=== PATIENT | female | born 1955 | race Caucasian/White ===

== ENCOUNTER → 2016-11-30 | Outpatient (CLI) | payer BC ==
[~2016-11-30] MED LIST: ADVIL200 MG PO; ATIVAN 1MG T1 MG/TAB PO; COMPAZINE 110 MG/TAB PO; DILAUDID 2MG/2 MG/M1 IV; DULCOLAX S10 MG/SUPP RC; EMLA CREAM TOP; GLUCOPHAGE500 MG/TAB PO; IBRANCE125 MG PO; LIPITOR 10MG10 MG PO; LOVENOX 4040 MG/0.4 SQ; PROTONIX I40 MG/VIAL IV; ROXANOL 20MG20 MG/ML PO; SYNTHROID0.088 MG/T PO; TRANSDERM-0.5 MG/21 TD; TYLENOL SU650 MG/SUP RC; ZOFRAN INJ4 MG/2 ML IV; ZOFRAN8 MG PO; ZOLOFT 100MG100 MG PO
== END ==
LOC: ZCOL.LAB 11:07
DX: Z01.89 Encounter for other specified special examinations (principal)

== ENCOUNTER → 2016-12-13 | Outpatient (CLI) | payer BC | LOC: COL.RAD 09:14 | DX: R00.0 Tachycardia, unspecified (principal); Z95.828 Presence of other vascular implants and grafts ==

== ENCOUNTER → 2016-12-21 | Outpatient (CLI) | payer BC | LOC: COL.RAD 13:52 | DX: C50.411 Malignant neoplasm of upper-outer quadrant of right female breast (principal); C79.51 Secondary malignant neoplasm of bone; K80.10 Calculus of gallbladder with chronic cholecystitis without obstruction; R06.00 Dyspnea, unspecified | CPT/HCPCS: Q9967 ==

== ENCOUNTER 2016-12-28 13:58 | Inpatient (IN) | payer BC ==
[~2016-12-28] VITALS: Ht 172.7 cm; Wt 86.9 kg
--- NOTE | 2016-12-28 14:00 | NUR ---
PATIENT ADMITED INTO ROOM 346 FROM OFFICE WITH N/V AND WILL HAVE AN EGD IN THE AM. NPO AFTER MIDNIGHT. SEE ORDERS. PATIENT HAS BREAST CA AND RECEIVING CHEMO. ACCESSED RIGHT CHEST PORT WITH 1 INCH HUBBER NEEDLE WITH GOOD BLOOD RETURN. IV FLUIDS BOLUS GIVEN VIA PUMP PER ORDERS. HEALTH HISTORY AND MEDS OBTAINED. HEAD TO TOE ASSESSMENT COMPLETE. FAMILY AT BEDSIDE. ORIENTED TO ROOM. CALL LIGHT IN REACH.
[2016-12-28 14:35] VITALS: BP 126/66; PULSE 79; TEMP 97.5
[2016-12-28 14:42] LABS: HEMATOCRIT 38.8 % (37.0-47.0); HEMOGLOBIN 12.9 g/dl (12.5-16.0); MEAN CELL VOLUME 102 fl (80.0-100.0); MEAN CORPUSCULAR HEMOGLOBIN 34 pg (27.0-31.0); MEAN CORPUSCULAR HGB CONC 33 g/dl (33.0-37.0); MEAN PLATELET VOLUME 10.5 fl (7.4-10.4); PLATELET COUNT 135 K/mm3 (130-400)
[2016-12-28 15:01] LABS: ALBUMIN 3.6 gm/dL (3.5-5.0); BILIRUBIN,TOTAL 2.1 mg/dL (0.0-1.0); C-REACTIVE PROTEIN 3.1 mg/dL (0.0-0.9); CALCIUM 9.7 mg/dL (8.4-10.2); CREATININE, serum 1.05 mg/dL (0.52-1.25); POTASSIUM 4.2 mmol/L (3.4-5.0); TOTAL PROTEIN 8.5 gm/dL (6.4-8.2)
[2016-12-28] MEDS ORDERED: IBRANCE125 MG PO (16:25)
[2016-12-28] MEDS ORDERED: SYNTHROID0.088 MG/T PO (16:27)
[2016-12-28] MEDS ORDERED: COMPAZINE 110 MG/TAB PO (16:27)
[2016-12-28] MEDS ORDERED: ZOLOFT 100MG100 MG PO (16:28)
[2016-12-28] MEDS ORDERED: GLUCOPHAGE500 MG/TAB PO (16:28)
[2016-12-28] MEDS ORDERED: ZOFRAN8 MG PO (16:28)
[2016-12-28] MEDS ORDERED: EMLA CREAM TOP (16:28)
[2016-12-28] MEDS ORDERED: ADVIL200 MG PO (16:29)
[2016-12-28] MEDS ORDERED: LIPITOR 10MG10 MG PO (16:29)
[2016-12-28 18:13] VITALS: BP 102/45; PULSE 73; TEMP 98
--- NOTE | 2016-12-28 20:34 | NUR ---
Pt lying in bed resting. Arousable to voice commands, pt denies nausea or pain at this time. IV protonix given. Pt has some appetite, jello and juice given, tolerated well. IVF running to port on right upper chest. Pt NPO for EGD in the AM. Pt denies needs. Call light within reach. Will continue to monitor.
[2016-12-28 22:01] VITALS: BP 108/55; PULSE 78; TEMP 98.3
[2016-12-29] VITALS (13 sets, daily range): BP systolic 110–126; BP diastolic 50–66; PULSE 64–89; TEMP 97.6–98.7
--- NOTE | 2016-12-29 06:45 | NUR ---
PT slept well during the night, needed pain and nausea medicine early this am. IVF running to port, right upper chest. VSS. Consent signed by son this AM. Pt to EGD this am. Shift report given to BRO Kruger.
--- NOTE | 2016-12-29 07:00 | NUR ---
Bedside shift report received from Irlanda Shelton. Pt nauseated at this time, Dr. Philip on floor, received orders for Phenergan. Will provide.
--- NOTE | 2016-12-29 08:04 | NUR ---
Son here to sign consent. Preop checklist completed. Pt nauseated and resting with eyes closed at this time. IVF to [facility] portacath. Pt denies pain. Family at bedside for EGD, pt left floor at this time with Endo staff for procedure.
--- NOTE | 2016-12-29 08:30 | NUR ---
Pt returned to floor at this time. Sleepy but arousable, VSS. Family at bedside but going home. Will continue to monitor.
--- NOTE | 2016-12-29 10:23 | NUR ---
Daughter called, will be sending DPOA and advanced directives via fax shortly
--- NOTE | 2016-12-29 10:31 | NUR ---
Called family to update regarding MRI information, will continue to monitor.
[2016-12-29 11:50] LABS: MEAN CELL VOLUME 106 fl (80.0-100.0); MEAN CORPUSCULAR HGB CONC 32 g/dl (33.0-37.0); MEAN PLATELET VOLUME 10.9 fl (7.4-10.4); PLATELET COUNT 123 K/mm3 (130-400); RED BLOOD COUNT 3.14 M/mm3 (4.10-5.30); REDCELL DISTRIBUTION WIDTH-CV 18.5 % (11.5-14.5)
[2016-12-29 11:56] LABS: HEMATOCRIT 33.3 % (37.0-47.0); HEMOGLOBIN 10.8 g/dl (12.5-16.0); MEAN CORPUSCULAR HEMOGLOBIN 34 pg (27.0-31.0)
[2016-12-29 11:57] LABS: BILIRUBIN,TOTAL 2.1 mg/dL (0.0-1.0); CALCIUM 8.3 mg/dL (8.4-10.2); CREATININE, serum 0.85 mg/dL (0.52-1.25); TOTAL PROTEIN 7.2 gm/dL (6.4-8.2)
--- NOTE | 2016-12-29 15:30 | NUR ---
Met with pt's son and daughter while she was sleeping. They are very aware that an MRI has been ordered along with blood culture and antibiotic. While they are hopeful for a manageable situation, they are also well aware that her situation has been worsening over the last few months with appetite, mental status, strength, and general well-being. We did talk about resources in community that are available, dependent on what goal of care is. Family is hopeful to return their mother to [facility] which is where she is from it her "last days are getting close." We should have much more information available at the beginning of next week. They also report that Denilson with [employer] has called them but left messages and they have left messages but have not spoken to her. Advised Sofía Bhat LMSW of these conversations also.
--- NOTE | 2016-12-29 19:00 | NUR ---
Pt has recieved PRN nausea medications over shift as needed. Rested well at times. Ate a jello and had a few sips of juice for supper. Family at bedside. Bedside shift report given to Irlanda Pappas who will resume care.
[2016-12-30 03:18] VITALS: BP 115/55; PULSE 72; TEMP 98.6
[2016-12-30 05:03] VITALS: BP 133/76; PULSE 70; TEMP 98.3
--- NOTE | 2016-12-30 05:18 | NUR ---
PT HAS DENIED ANY NAUSEA TONIGHT. VERY WEAK AMBULATION. KNEES HURT EATLIER BUT DENIES NEED FOR PAIN MED. HAS RESTED MOST OF THE NIGHT. TOOK PART OF A SPRITE AND A FULL JELLO. VERY FATIGUED.
[2016-12-30 09:30] VITALS: BP 128/61; PULSE 75; TEMP 98.2
--- NOTE | 2016-12-30 10:55 | NUR ---
PT RESTING IN BED DURING MORNING ROUNDS WITH SON AT BEDSIDE. PT STATES SHE HAS PASSED GAS AND DID HAVE BM TODAY. PT DENIES NAUSEA TODAY AND IS REQUESTING MORE DIETARY ITEMS. SON STATES PT IS DOING MUCH BETTER TODAY THAN YESTERDAY REGARDING NAUSEA.
[2016-12-30 13:48] VITALS: BP 130/65; PULSE 74; TEMP 98.3
[2016-12-30 17:34] VITALS: BP 124/71; PULSE 74; TEMP 97.6
[2016-12-30 22:23] VITALS: BP 125/64; PULSE 81; TEMP 98.2
--- NOTE | 2016-12-31 03:39 | NUR ---
The pt was bedresting with her son at her side as the shift began. Her IV via portacath is patent for fluids and meds. she had a broth for supper and is eating her second jello at this time. a gelatiene was given to the pt to sample and teaching about its protien content was discussed. Her son is hopeful that it could help give her strength. The pt verbalized of her diagnosis in [facility] and of her move to [place] 2 months ago to be near her children and grandchildren. She appears to sleep in long naps between trips to the to void.
--- NOTE | 2016-12-31 03:45 | NUR ---
Today is the pt's Birthday!
[2016-12-31 06:29] VITALS: BP 129/68; PULSE 82; TEMP 97.5
[2016-12-31 07:07] LABS: BASO # 0.1 (0.0-0.2); BASO % 0.7 % (0.0-2.0); EOS # 0.1 (0.0-0.7); EOS % 0.8 % (0-4.0); GRAN # 10.8 (1.4-6.5); GRAN % 70.7 % (42.2-75.2); LYMPH # 2.8 (1.2-3.4); LYMPH % 18.1 % (20.0-51.0); MEAN CELL VOLUME 104 fl (80.0-100.0); MEAN CORPUSCULAR HGB CONC 33 g/dl (33.0-37.0); MEAN PLATELET VOLUME 11.5 fl (7.4-10.4); MONO # 1.4 (0.1-0.6); PLATELET COUNT 97 K/mm3 (130-400); RED BLOOD COUNT 3.12 M/mm3 (4.10-5.30); REDCELL DISTRIBUTION WIDTH-CV 18.7 % (11.5-14.5)
[2016-12-31 07:08] LABS: HEMATOCRIT 32.4 % (37.0-47.0); HEMOGLOBIN 10.7 g/dl (12.5-16.0); MEAN CORPUSCULAR HEMOGLOBIN 34 pg (27.0-31.0)
[2016-12-31 07:12] LABS: ALBUMIN 2.8 gm/dL (3.5-5.0); BILIRUBIN,TOTAL 2.9 mg/dL (0.0-1.0); CALCIUM 8.1 mg/dL (8.4-10.2); CREATININE, serum 0.98 mg/dL (0.52-1.25); POTASSIUM 3.4 mmol/L (3.4-5.0); TOTAL PROTEIN 6.9 gm/dL (6.4-8.2)
[2016-12-31 10:10] VITALS: BP 127/61; PULSE 73; TEMP 97.7
--- NOTE | 2016-12-31 11:15 | NUR ---
PT AWAKE AND RESTING IN BED DURING MORNING ROUNDS. SHE STATES SHE HAD A PLEASANT NIGHT AND WAS ABLE TO SLEEP AND TOLERATE PO INTAKE. PRINT TRAFFIC MANAGER NURSE ADVANCED PATIENT TO SOFT AND PT/NURSE AGREE TO ATTEMPT A REGULAR DIET FOR LUNCH. PT ORDERED OATMEAL FOR BREAKFAST, ATE 50%, TOLERATED WELL. PT OOB TO COMMODE WITH 1 ASSIST AND GAIT BELT. GAIT IS UNSTEADY AND PT IS HIGH FALL RISK; PRECAUTIONS IN PLACE.
[2016-12-31 13:21] VITALS: BP 133/70; PULSE 81; TEMP 97.5
--- NOTE | 2016-12-31 20:00 | NUR ---
patient dong well. Ambulated to the bathroom with a gait belt, no walker. steady gait. no pain. portacath to right chest CDI. No abdominal pain. Patient ate all of dinner. Will continue to monitor.
[2016-12-31 22:19] VITALS: BP 136/69; PULSE 74; TEMP 97.7
--- NOTE | 2017-01-01 01:58 | NUR ---
Patient resting in bed. She was uncomfortable and wanted to get off her bottom so i turned her on her left side. Now sleeping.
[2017-01-01 02:32] VITALS: BP 127/65; PULSE 86; TEMP 97.2
[2017-01-01 05:59] VITALS: BP 133/76; PULSE 71; TEMP 98.6
--- NOTE | 2017-01-01 06:28 | NUR ---
Patient doing well. Already ambulated to bathroom this morning. About to give bedside shift report to oncoming nurse.
--- NOTE | 2017-01-01 09:15 | NUR ---
PATIENT UP TO THE BATHROOM & SHE IN NOW SITTING UP IN CHAIR. SHE IS UNSTEADY ON HER FEET, BUT SHE REPORTS FEELING SO MUCH BETTER AND STRONGER TODAY. PORT WITH IVF. BREAKFAST ORDERED. SHE DENIES NAUSEA. SCDS BLE. CRISTINA BULK ROUNDING. PATIENT IN POSITIVE SPIRIRTS. WILL CONTINUE TO [facility].
--- NOTE | 2017-01-01 09:34 | NUR ---
Met with pt herself today, who is sitting up in chair and conversing easily today. She looks so much better than on sunday. Her son and daughter in law are not present at this time. She is still planning to return to [facility] when her son gets out of the in 1 month but we are not anticipating a more emergent move before then. Will continue to follow pt while here but not anticipating further intervention.
[2017-01-01 10:56] VITALS: BP 145/74; PULSE 73; TEMP 97.6
--- NOTE | 2017-01-01 11:37 | NUR ---
First visit from the equine manager. No spiritual needs right now.
--- NOTE | 2017-01-01 12:08 | NUR ---
SPOKE WITH ABOUT PATIENT THIS AM. ORDERS FOR PT AND OT OBTAINED. SPOKE WITH PATIENT SON YOVANNY-HE WAS CONCERNED ABOUT DC. SOCIAL WORK INVOLVED-POTENTIAL FOR IPR. PATIENT ATE A GOOD AMOUNT OF HER BREAKFAST, NOT READY FOR LUNCH YET. CONTINUES TO DENY PAIN. DOING WELL, SITTING UP IN CHAIR. WILL CONTINUE TO [facility].
[2017-01-01 14:11] VITALS: BP 136/70; PULSE 73; TEMP 98.2
--- NOTE | 2017-01-01 14:48 | NUR ---
general i farmworker met with patient to discuss rehab options. Patient was evaluated by physical therapy and the recommendation was for acute rehab. Worker provided rehab options and patient chose [facility] and signed choice form. Worker gave a referral. Will await occupational therapy evaluation and insurance approval. Per patient' request, worker contacted son, Albert, and advised of the above information.
--- NOTE | 2017-01-01 15:57 | NUR ---
IPR SCREEN IN PROCESS. ASSISTED PATIENT TO EAT MASHED POTATOES & MEATLOAF FOR LUNCH. SHE HAS WORKED WITH THERAPY THIS AFTERNOON. SHE OVER REPORTS FEELING WELL. WILL CONTINUE TO MONITOR.
[2017-01-01 17:33] VITALS: BP 118/64; PULSE 84; TEMP 98.4
--- NOTE | 2017-01-01 19:20 | NUR ---
PATIENT SITTING UP IN CHAIR. SHE HAD A GREAT DAY. SHE DID GET NAUSEA AT THE SIGHT OF HER DINNER-CRACKERS & SPRITE PROVIDED. PORT A CATH TO INT PER ORDERS. PATIENT HAS BEEN MORE ACTIVE TODAY. MORE STEADY ON HER FEET WITH WALKER. CARMINA REPORT TO BRO HIDALGO
--- NOTE | 2017-01-01 20:03 | NUR ---
Patient complained of nausea. gave her crackers now shes feeling better. Pt is alert and oriented just slow to respond and weak and tired. Pt is falling asleep in the chair and answers when i ask questions. Will continue to monitor.
[2017-01-01 22:01] VITALS: BP 125/55; PULSE 90; TEMP 97.6
[2017-01-02 02:06] VITALS: BP 134/73; PULSE 88; TEMP 97.7
--- NOTE | 2017-01-02 02:28 | NUR ---
Patient has been very weak and tired tonight. She is sleeping in the recliner currently. She answers when we ask her something but she hasn't gone out of her way to call for anything. The call light is on her lap and i instructed her to press it but she just keeps sleeping unless we come in and then she's either sleeping while were in there or just sitting and stairing. Will continue to monitor.
--- NOTE | 2017-01-02 04:03 | NUR ---
PATIENT VERY WEAK, CAN'T LIFT UP ARMS OR FINGERS, SHE CAN KEEP THEM UP AFTER I LIFT HER ARMS UP. I HAD PATIENT SQUEEZE MY FINGERS, IT WAS EQUAL BUT VERY WEAK GRASP. PATIENT DID NOT WANT TO GET UP TO USE THE RESTROOM OR GET INTO BED. WILL CONTINUE TO MONITOR THROUGH THE REST OF THE NIGHT.
[2017-01-02 05:46] VITALS: BP 140/73; PULSE 77; TEMP 96.6
--- NOTE | 2017-01-02 06:21 | NUR ---
GRETCHEN BLOOD FROM PORT THIS MORNING. PATIENT SLEEPING, NO PAIN, STILL EXTREMELY WEAK. STILL IN THE CHAIR. ABOUT TO GIVE SHIFT REPORT TO ONCOMING SHIFT.
[2017-01-02 06:29] LABS: BASO # 0.1 (0.0-0.2); BASO % 0.6 % (0.0-2.0); EOS # 0.1 (0.0-0.7); EOS % 0.6 % (0-4.0); GRAN # 11.6 (1.4-6.5); GRAN % 73.3 % (42.2-75.2); LYMPH % 19.1 % (20.0-51.0); MEAN CELL VOLUME 103 fl (80.0-100.0); MEAN CORPUSCULAR HGB CONC 33 g/dl (33.0-37.0); MEAN PLATELET VOLUME 10.5 fl (7.4-10.4); MONO # 0.9 (0.1-0.6); MONO % 5.8 % (1.7-9.3); PLATELET COUNT 81 K/mm3 (130-400); RED BLOOD COUNT 3.15 M/mm3 (4.10-5.30)
[2017-01-02 06:31] LABS: HEMATOCRIT 32.4 % (37.0-47.0); HEMOGLOBIN 10.8 g/dl (12.5-16.0); MEAN CORPUSCULAR HEMOGLOBIN 34 pg (27.0-31.0)
--- NOTE | 2017-01-02 08:20 | NUR ---
PATIENT IN CHAIR. STATES SHE FEELS VERY WEAK. ASSISTED X2 TO AMBULATE TO THE BATHROOM. STRUGGLED USING THE WALKER TO GET TO AND FROM THE BATHROOM. ONCOLOGIST AT BEDSIDE AND PATIENT GIVEN NEWS THAT HER CANCER HAS SPREAD. SHE SAID THAT WASN'T THE NEWS SHE WANTED TO HEAR. PATIENT ASSISTED TO EAT BREAKFAST. SHE IS EXTREMELY LETHARGIC AND WEAK. STATES SHE IS IN NO PAIN. CALL LIGHT IN REACH. CHAIR ALARM ON. NO OTHER REQUESTS AT THIS TIME.
[2017-01-02 09:23] VITALS: BP 128/68; PULSE 84; TEMP 97.9
--- NOTE | 2017-01-02 12:00 | NUR ---
We await insurance approval for an acute inpatient rehab placement.
--- NOTE | 2017-01-02 12:05 | NUR ---
Pt recieved news this morning from Dr Aquino that her cancer has now spread to her stomach as demonstrated by the biopsies taken last week. She did not sleep well last night and now is feeling very overwhelmed. I spoke with her Son Albert as well as the patient about latest developments and how this might impact our working goals. At this time Albert is wanting to help his mother get stronger to be able to make the air flight home to [place], hopefully in the next few weeks. The plan is not to pursue further chemotherapy or radiation therapy per son Albert but rather to focus on comfort. Ximena, director of [facility] also spoke with Albert today as we move forward with this plan. Sofía Bhat [facility] has been advised of plan as well.
--- NOTE | 2017-01-02 13:06 | NUR ---
PATIENT ASSISTED X2 TO BATHROOM WITH GAIT BELT AND WALKER. VERY WEAK AND HAD TROUBLE UNDERSTANDING WHAT WE WANTED HER TO DO. REQUESTED TO LAY IN BED. SON AT BEDSIDE. TAKEN A WARM BLANKET. CALL LIGHT IN REACH. WATER OFFERED AND PATIENT TOOK SMALL SIP. NO FURTHER REQUESTS AT THIS TIME.
[2017-01-02 14:16] VITALS: BP 128/71; PULSE 76; TEMP 97.7
--- NOTE | 2017-01-02 18:22 | NUR ---
PATIENT ASSISTED TO BEDSIDE COMMODE. VERY WEAK AND REQUIRED A HEAVY 2 ASSIST. PATIENT CLEANED UP AND NEW GOWN PLACED. ASSITED TO WHEEL CHAIR AND PATIENT TRANSFERED TO [facility].
--- NOTE | 2017-01-02 18:47 | NUR ---
REPORT WAS GIVEN TO PRISCA CRABTREE. ALL QUESTIONS ANSWERED. PATIENT HAD BEEN NAUSEATED. ZOFRAN GIVEN PRN VIA PORT. MILKSHAKE ORDERED. PATIENT SLEPT WELL THIS AFTERNOON. DISCHARGE ORDERS FROM . ACCEPTED TO IPR.
[2017-01-02] MEDS ORDERED: ZOFRAN INJ4 MG/2 ML IV (20:24)
[2017-01-02] MEDS ORDERED: LOVENOX 4040 MG/0.4 SQ (20:25)
[2017-01-02] MEDS ORDERED: PROTONIX I40 MG/VIAL IV (20:25)
[2017-01-02] MEDS ORDERED: DILAUDID 2MG/2 MG/M1 IV (20:26)
--- NOTE | 2017-01-03 08:30 | NUR ---
On 01/02/17, insurance approved transfer to [facility] and patient was transferred to acute rehab.
== END 2017-01-02 18:00 | DRG 375 ==
LOC: SDCO 13:58 → SURG 14:05 → SDCO 14:06 → SURG 01-02 18:00
PROVIDERS: Surgery; ADMIT Surgery
PROC: 0DB68ZX Excision of Stomach, Via Natural or Artificial Opening Endoscopic, Diagnostic (ICD-10-PCS; principal; 2016-12-29 08:00)
DX: C78.89 Secondary malignant neoplasm of other digestive organs (principal); C79.51 Secondary malignant neoplasm of bone; K25.3 Acute gastric ulcer without hemorrhage or perforation; I10 Essential (primary) hypertension
CPT/HCPCS: A9585; C9113; J1170; J1644; J1650; J2405; J2543; J2550; J2704; J7030; J7050

== ENCOUNTER 2017-01-02 14:55 | Inpatient (IN) | payer BC ==
[~2017-01-02] VITALS: Ht 172.7 cm; Wt 86.9 kg
[~2017-01-02 14:55] MED LIST changes: -ATIVAN 1MG T1 MG/TAB PO; -DILAUDID 2MG/2 MG/M1 IV; -DULCOLAX S10 MG/SUPP RC; -LOVENOX 4040 MG/0.4 SQ; -PROTONIX I40 MG/VIAL IV; -ROXANOL 20MG20 MG/ML PO; -TRANSDERM-0.5 MG/21 TD; -TYLENOL SU650 MG/SUP RC; -ZOFRAN INJ4 MG/2 ML IV
[2017-01-02 18:00] VITALS: BP 132/66; PULSE 79; TEMP 97.5
[2017-01-02 18:15] VITALS: BP 132/66; PULSE 79; TEMP 97.5
[2017-01-02] MEDS ORDERED: ZOFRAN INJ4 MG/2 ML IV (20:24)
[2017-01-02] MEDS ORDERED: PROTONIX I40 MG/VIAL IV (20:25)
[2017-01-02] MEDS ORDERED: LOVENOX 4040 MG/0.4 SQ (20:25)
[2017-01-02] MEDS ORDERED: DILAUDID 2MG/2 MG/M1 IV (20:26)
[2017-01-03 06:38] VITALS: BP 143/77; PULSE 82; TEMP 98.4
[2017-01-03 09:08] LABS: ADD PATHOLOGY DIFF REVIEW NO
[2017-01-03 09:14] LABS: MEAN CELL VOLUME 104 fl (80.0-100.0); MEAN CORPUSCULAR HGB CONC 33 g/dl (33.0-37.0); MEAN PLATELET VOLUME 10.2 fl (7.4-10.4); PLATELET COUNT 90 K/mm3 (130-400); RED BLOOD COUNT 3.36 M/mm3 (4.10-5.30); REDCELL DISTRIBUTION WIDTH-CV 19.4 % (11.5-14.5); WHITE BLOOD COUNT 18.5 K/mm3 (4.8-10.8)
[2017-01-03 09:15] LABS: HEMATOCRIT 34.8 % (37.0-47.0); HEMOGLOBIN 11.5 g/dl (12.5-16.0); MEAN CORPUSCULAR HEMOGLOBIN 34 pg (27.0-31.0)
[2017-01-03 09:21] LABS: ADJUSTED CALCIUM 9.4 mg/dL (8.4-10.2); BILIRUBIN,TOTAL 2.7 mg/dL (0.0-1.0); CALCIUM 8.6 mg/dL (8.4-10.2); CREATININE, serum 0.64 mg/dL (0.52-1.25); POTASSIUM 3.7 mmol/L (3.4-5.0); TOTAL PROTEIN 7.4 gm/dL (6.4-8.2)
[2017-01-03 09:47] LABS: BAND 3 % (0-10); BASOPHIL 1 % (0-2); NEUTROPHILS 79 % (42.0-75.2); SCHISTOCYTES 1+; TARGET CELLS 1+; TOTAL CELLS COUNTED 100
[2017-01-03 09:48] LABS: PLATELET ESTIMATE DECREASED (NORMAL)
[2017-01-03 18:25] VITALS: BP 134/71; PULSE 76; TEMP 97.6
[2017-01-03 18:35] LABS: PH 6 (5-8); SQUAMOUS EPITHELIAL 0-2 /hpf; URINE APPEARANCE Clear; URINE BACTERIA None Seen /hpf; URINE BILIRUBIN Negative (NEGATIVE); URINE BLOOD Negative (NEGATIVE); URINE COLOR Amber; URINE GLUCOSE Negative (NEGATIVE); URINE KETONE Trace (NEGATIVE); URINE RBC 0-2 /hpf; URINE UROBILINOGEN >=4.0 mg/dL (NEGATIVE)
[2017-01-04 02:04] VITALS: BP 138/80; PULSE 77; TEMP 97.5
[2017-01-04] MEDS ORDERED: DULCOLAX S10 MG/SUPP RC (11:42)
[2017-01-04] MEDS ORDERED: TRANSDERM-0.5 MG/21 TD (11:43)
[2017-01-04] MEDS ORDERED: TYLENOL SU650 MG/SUP RC (11:43)
[2017-01-04] MEDS ORDERED: ATIVAN 1MG T1 MG/TAB PO (11:46)
[2017-01-04] MEDS ORDERED: ROXANOL 20MG20 MG/ML PO (11:46)
== END 2017-01-04 14:45 | disposition hospice, inpatient (51) | DRG 74 ==
PROVIDERS: Internal Medicine
DX: G62.0 Drug-induced polyneuropathy (principal); C78.89 Secondary malignant neoplasm of other digestive organs; R53.81 Other malaise; T45.1X5A Adverse effect of antineoplastic and immunosuppressive drugs, initial encounter; Z51.5 Encounter for palliative care; Z66 Do not resuscitate; Z85.3 Personal history of malignant neoplasm of breast
CPT/HCPCS: 99223-AI; 99239; C9113; J0696; J1170; J1644